=== PATIENT | female | born 1965 | race Caucasian/White ===

== ENCOUNTER → 2023-09-24 | Outpatient (CLI) | payer OTHER, SELFPAY ==
--- NOTE | 2023-09-24 09:11 | RAD_ITS ---
RAD/L/S Spine w Bend Min 6 Vw IMPRESSION: There is levoscoliosis of the lumbar spine, the angle measures approximately 12 degrees . Multilevel degenerative spondylosis more prominent in the lower lumbar spine at L4-5 and L5-S1. Electronically Signed: Kanwal Tapia MD at 1:22 EDT ,
== END | disposition home or self-care (01) ==
LOC: MTRAD 09:08
PROVIDERS: PCP Clinical Nurse Specialist Adult Health; Referring Provider Clinical Nurse Specialist Adult Health; Visit Provider Clinical Nurse Specialist Adult Health
DX: M51.36 Other intervertebral disc degeneration, lumbar region (principal)
CPT/HCPCS: 72114

== ENCOUNTER → 2023-12-26 | Outpatient (CLI) | payer OTHER, SELFPAY ==
--- NOTE | 2023-12-26 10:47 | RAD_ITS ---
INDICATION: LEFT HIP PAIN- AFTER RECENT FALL EXAMINATION/TECHNIQUE: X-RAY - LEFT XR Hip Unilateral with Pelvis when performed; 2-3 Views COMPARISON: None. FINDINGS: SOFT TISSUES: Unremarkable. BONES/JOINTS: No fracture or dislocation. No significant degenerative changes. No erosive changes. RAD/HIP, UNI W/ Pelvis 2-3 Views IMPRESSION: No fracture or dislocation. Electronically Signed: Kirby Wynn DO at 0:13 EDT ,
== END | disposition home or self-care (01) ==
LOC: MTRAD 10:45
PROVIDERS: Referring Provider Clinical Nurse Specialist Adult Health; Visit Provider Clinical Nurse Specialist Adult Health
DX: M25.552 Pain in left hip (principal)
CPT/HCPCS: 73502